=== PATIENT | male | born 1990 | race Caucasian/White ===

== ENCOUNTER 2019-10-16 13:09 | Emergency (ER) | payer OTHER ==
[2019-10-16 13:20] VITALS: BP 140/92
--- NOTE | 2019-10-16 13:52 | ED Physician Documentation ---
History of Present Illness - Stated complaint Stated Complaint: COUGH,SOA,FATIGUE - Chief complaint Chief Complaint: General - History obtained from History obtained from: Patient - History of Present Illness Timing: Other (29-year-old gentleman with history of asthma albeit mild presents with a productive cough with green sputum for about a week. He is mildly short of breath and has wheezing at night. He denies fevers. No recent travel or sick contacts known. He is specifically worried about coronavirus. Slight hemoptysis today.) Review of Systems Constitutional: denies: Fever, Chills Nose: denies: Rhinorrhea / runny nose Throat: denies: Sore throat Cardiac: denies: Chest pain / pressure Respiratory: reports: Dyspnea, Cough PD PAST MEDICAL HISTORY - Past Medical History Past Medical History: No - Past Surgical History Past Surgical History: Yes Ortho: Other - Present Medications Home Medications: Ambulatory Orders Medication Instructions Recorded Confirmed Albuterol Sulf [Ventolin Hfa 1 - 2 puffs INH Q4HR PRN #1 inhaler 10/16/19 Inhaler] - Social History Does the pt smoke?: No Smoking Status: Never smoker Does the pt drink ETOH?: Yes Does the pt have substance abuse?: No - Immunizations Immunizations are current?: Yes PD ED PE NORMAL - Vitals Vital signs reviewed: Yes - General General: Alert and oriented X 3, No acute distress - HEENT HEENT: PERRL, EOMI - Neck Neck: Supple, no meningeal sign, No bony TTP - Cardiac Cardiac: RRR, No murmur - Respiratory Respiratory: No respiratory distress, Clear bilaterally - Abdomen Abdomen: Non tender - Derm Derm: No rash - Neuro Neuro: Alert and oriented X 3, Normal speech - Psych Psych: Normal mood, Normal affect Results - Vitals Vitals: Vital Signs - 24 hr 10/16/19 13:18 Temperature 36.7 C Heart Rate 72 Respiratory 16 Rate Blood Pressure 140/92 H O2 Saturation 97 Oxygen O2 Source Room air - Rads (name of study) 2v chest Radiology: EMP read contemporaneously (normal) PD MEDICAL DECISION MAKING - ED course ED course: 29-year-old gentleman with what sounds like viral bronchitis. He requested coronavirus testing which was done albeit the limitations were discussed including low sensitivity and lack of negative predictive value as well as home quarantine guidelines from the CDC. Departure - Departure Disposition: 01 Home, Self Care Clinical Impression: Viral bronchitis Condition: Good Record reviewed to determine appropriate education?: Yes Instructions: ED Bronchitis Asthmatic Prescriptions: Albuterol Sulf [Ventolin Hfa Inhaler] 1 - 2 puffs INH Q4HR PRN #1 inhaler PRN Reason: Shortness Of Air/Wheezing Comments: There is no evidence of bacterial infection, your chest x-ray is normal. The albuterol inhaler should help with the shortness of breath. Coronavirus seems unlikely based on your particular symptoms but given the current outbreak, see the attached information from: https://www.cdc.gov/coronavirus/2019-ncov/community/wfohrhcf-nhhvsrmj-ndzccpiu.h tml To help guide you on home quarantine and return to work information. Return if worse. Discharge Date/Time: 10/16/19 14:33
--- NOTE | 2019-10-16 14:14 | XRAY Report ---
Reason: cough hemoptysis Procedure Date: 10/16/2019 Accession Number: [id number] / [id number] Procedure: XR - Chest 2 View X-Ray CPT Code: 07582 Final Report FULL RESULT: EXAM: CHEST RADIOGRAPHY EXAM DATE: 10/16/2019 01:50 PM. CLINICAL HISTORY: Cough hemoptysis. COMPARISON: None. TECHNIQUE: 2 views. FINDINGS: Lungs/Pleura: No focal opacities evident. No pleural effusion. No pneumothorax. Normal volumes. Mediastinum: Heart and mediastinal contours are normal. Other: None. IMPRESSION: No acute cardiopulmonary abnormality. [facility]
== END 2019-10-16 14:33 | disposition home or self-care (01) ==
LOC: ED 13:09
DX: J20.8 Acute bronchitis due to other specified organisms (principal)
CPT/HCPCS: 71046; 81599; 99284